=== PATIENT | female | born 1985 | race Caucasian/White ===

== ENCOUNTER 2016-09-23 22:56 | Emergency (ER) | payer SELFPAY ==
[~2016-09-23 22:56] MED LIST: BACTDS PO; CEPH-443 PO; IBUP-1542 PO; INSU100C SQ; MUPI22OI2 TOP; NPH,100V SQ; PREN1TAB49 DT; PRO20 PO; TRAM50TA2 PO
== END 2016-09-23 23:45 | disposition left against medical advice (07) ==
LOC: E/R 22:56
DX: Z53.21 Procedure and treatment not carried out due to patient leaving prior to being seen by health care provider (principal)

== ENCOUNTER 2018-05-22 16:41 | Emergency (ER) | END 2018-05-22 19:24 | disposition home or self-care (01) ==